=== PATIENT | female | born 1970 | race Caucasian/White ===

== ENCOUNTER → 2019-06-16 | Outpatient (CLI) | payer BC ==
[~2019-06-16] MED LIST: ACEBUTCAFT PO; ANTIBIOTIC; AZIT250; AZIT250 PO; CITA20 PO; CYCL10 PO; HYDACE5 PO; IBUP800; IBUP800 PO; LITH300C; META800; META800 PO; METO10 PO; NAPR500 PO; ONDA4ODT MM; OXYACE5T PO; OXYC5 PO; PROCODE120 PO; PROM25 PO; QUET100 PO; RXHYDACE PO; SERT100; SYNTHROID; SYNTHROID PO
[2019-06-16 17:00] LABS: Source, Urine Voided
[2019-06-16 17:12] LABS: Bilirubin, Urine Neg (Neg); Blood, Urine 4+ (Neg); Glucose Qualitative, Urine Neg (Neg); Ketones, Urine Neg (Neg); Leukocyte Esterase, Urine 3+ (Neg); Nitrite, Urine Neg (Neg); Protein, Urine 2+ (Neg); Specific Gravity, Urine 1.015 (1.003-1.022); Urobilinogen, Urine NORM (Normal)
[2019-06-16 17:37] LABS: Appearance, Urine Cloudy (Clear); Color, Urine Yellow (P-Yellow)
[2019-06-16 17:38] LABS: Bacteria Mod /hpf; Squamous Epithelial Cells Few /hpf (Few); White Blood Cells, Urine TNTC /hpf (0-5)
== END ==
LOC: LAB 16:58 → LAB SHORT 16:58
PROVIDERS: Nurse Practitioner Family
DX: R30.0 Dysuria (principal)
CPT/HCPCS: 81001; 87077; 87086; 87186

== ENCOUNTER 2020-12-22 12:45 | Emergency (ER) | payer BC ==
[~2020-12-22] VITALS: Ht 162.6 cm; Wt 106.1 kg
[2020-12-22 13:48] LABS: BASOPHILS ABSOLUTE AUTO 0.09 K/mm3 (0.00-0.23); BASOPHILS PERCENT AUTO 1 % (0-2); EOSINOPHILS ABSOLUTE AUTO 0.13 K/mm3 (0.00-0.68); EOSINOPHILS PERCENT AUTO 2 % (0-6); Hematocrit 44.1 % (33.0-51.0); Hemoglobin 13.3 g/dL (11.5-16.0); IMMATURE GRAN ABSOLUTE AUTO 0.01 K/mm3 (0.00-0.10); IMMATURE GRAN PERCENT AUTO 0 % (0-1); LYMPHOCYTES ABSOLUTE AUTO 2.75 K/mm3 (0.84-5.20); LYMPHOCYTES PERCENT AUTO 34 % (21-46); MONOCYTES ABSOLUTE AUTO 0.44 K/mm3 (0.16-1.47); MONOCYTES PERCENT AUTO 6 % (4-13); Mean Corpuscular HGB 19.8 pg (26.0-34.0); Mean Corpuscular HGB Conc 30.2 g/dL (31.5-36.5); Mean Corpuscular Volume 66 fL (80-100); Mean Platelet Volume 10.3 fL (9.1-12.4); NEUTROPHILS ABSOLUTE AUTO 4.65 K/mm3 (1.96-9.15); NEUTROPHILS PERCENT AUTO 58 % (41-73); Platelet Count 277 K/mm3 (150-400); RDW Coefficient Variation 17.7 % (11.7-14.2); RDW Standard Deviation 36.4 fL (35.1-46.3); Red Blood Cell Count 6.71 M/mm3 (3.80-5.20); White Blood Cell Count 8.07 K/mm3 (4.00-11.30)
[2020-12-22 14:11] LABS: Alanine Aminotransfer (ALT/SGP 30 U/L (12-78); Albumin, Blood 3.6 g/dL (3.4-5.0); Albumin/Globulin Ratio 0.8 (0.8-1.8); Alk Phos 149 U/L (50-136); Anion Gap 7 mmol/L (6-16); Aspartate Aminotrans (AST/SGOT 16 U/L (12-37); Bilirubin, Total 0.7 mg/dL (0.1-1.0); Blood Urea Nitrogen 9 mg/dL (8-24); Bun/Creatinine Ratio 10.9 (12.0-20.0); CO2, Blood 25 mmol/L (21-32); Calcium, Blood 9.3 mg/dL (8.5-10.1); Chloride, Blood 106 mmol/L (98-108); Creatinine, Blood 0.83 mg/dL (0.40-1.00); Globulin, Blood 4.3 g/dL (2.2-4.0); Glomerular Filtration Rate >60 (60-); Glucose, Blood 103 mg/dL (70-99); Potassium, Blood 4.2 mmol/L (3.5-5.5); Sodium, Blood 138 mmol/L (136-145); Total Protein, Blood 7.9 g/dL (6.4-8.2); Troponin I <0.015 ng/mL (0.000-0.040)
[2021-05-04] MEDS ORDERED: Prednisone10 MG PO (12:11)
== END 2020-12-22 18:17 | disposition home or self-care (01) ==
LOC: ER 12:45
PROVIDERS: Emergency Medicine
DX: R16.1 Splenomegaly, not elsewhere classified (principal); R59.0 Localized enlarged lymph nodes; R06.00 Dyspnea, unspecified; F17.200 Nicotine dependence, unspecified, uncomplicated; Z88.8 Allergy status to other drugs, medicaments and biological substances; Z79.899 Other long term (current) drug therapy
CPT/HCPCS: 36415; 71046; 71260; 80053; 83735; 83880; 84484; 85025; 85379; 93005; 93010; 93971; 99285-25; Q9967

== ENCOUNTER 2021-05-01 07:37 | Day surgery (SDC) | payer BC ==
[~2021-05-01] VITALS: Ht 1661.1 cm; Wt 105.0 kg
[2021-05-01] MEDS ORDERED: ABILIFY MYCITE20 MG PO (08:26)
[2021-05-01] MEDS ORDERED: PROAIR DIGIHAL90 MCG INH (08:26)
[2021-05-01] MEDS ORDERED: LEVSOD100 PO (08:27)
[2021-05-01] MEDS ORDERED: LASIX40 MG PO (08:27)
[2021-05-01] MEDS ORDERED: POTCHL20ER PO (08:27)
--- NOTE | 2021-05-01 10:35 | NUR ---
DISCHARGE PT REMAINED A&OX3 AND DENIED ANY PAIN DURING RECOVERY. PT ABLE TO SWALLOW WATER WITH EASE. DR. CRISTOBAL HERE TO CONSENT PT FOR ANGIOGRAM. IV DC'S WITH MARYLU IN TACT. DISCHARGE PAPERWORK GONE OVER WITH PT. PT VERBALLY STATED THE UNDERSTANDING OF THE DISCHARGE EDUCATION AND DENIED ANY QUESTIONS AT THIS TIME. PT WHEELED OUT BY THIS NURSE.
[2021-05-04] MEDS ORDERED: Prednisone10 MG PO (12:11)
== END 2021-05-01 10:47 | disposition home or self-care (01) ==
LOC: MHTC 07:37
DX: I08.1 Rheumatic disorders of both mitral and tricuspid valves (principal); J45.909 Unspecified asthma, uncomplicated; E03.9 Hypothyroidism, unspecified; Z79.899 Other long term (current) drug therapy; Z88.8 Allergy status to other drugs, medicaments and biological substances
CPT/HCPCS: 93246; 93312; 93325; 99152; 99153; A9270; J2250; J2310; J3010; J7040

== ENCOUNTER 2021-05-07 08:40 | Day surgery (SDC) | payer BC ==
[~2021-05-07] VITALS: Ht 162.6 cm; Wt 110.7 kg
[~2021-05-07 08:40] MED LIST changes: +ABILIFY MYCITE20 MG PO; +LASIX40 MG PO; +LEVSOD100 PO; +POTCHL20ER PO; +PROAIR DIGIHAL90 MCG INH; +Prednisone10 MG PO
--- NOTE | 2021-05-07 11:41 | NUR ---
PT RETURNED BACK TO RECOVERY ROOM IN RECLINER. RIGHT RADIAL TR BAND SITE SOFT NON-TENDER WITH NO HEMATOMA, NO PULSATILE BLEEDING WITH WRIST BOARD IN PLACE. R AC VENOUS SITE SOFT NON-TENDER WITH NO HEMATOMA, SLIGHT TRACK OOZING NOTED WITH INTACT MYRON AND DRESSING. SP02 PROBE ON RIGHT INDEX FINGER WITH 98% SAT. CALL LIGHT IN REACH; PT DRINKING WATER.
--- NOTE | 2021-05-07 13:28 | NUR ---
12 CC OF AIR REMOVED OUT OF NOW DEFLATED RIGHT TR BAND OVER 10 MIN. RIGHT RADIAL SITE SOFT NON-TENDER WITH NO HEMATOMA, NO PULSATILE BLEEDING. RIGHT AC SITE NO CHANGES. DISCHARGE INSTRUCTIONS REVIEWED ALL QUESTIONS ANSWERED.
--- NOTE | 2021-05-07 13:57 | NUR ---
NO CHANGES TO EITHER RIGHT RADIAL DEFLATED TR BAND SITE OR RIGHT AC SITE.
--- NOTE | 2021-05-07 14:19 | NUR ---
NO CHANGES TO EITHER RIGHT RADIAL SITE OR RIGHT AC SITE. DEFLATED RIGHT TR BAND REMOVED AND POLYMEM PLACED OVER RIGHT RADIAL SITE WITH WRIST BOARD IN PLACE. 22 G IV DISCONTINUED FROM LEFT UPPER ARM WITH INTACT CANNULA. PT ESCORTED OUT VIA WHEELCHAIR ESCORT.
== END 2021-05-07 14:20 | disposition home or self-care (01) ==
LOC: MHTC 08:40
DX: I27.20 Pulmonary hypertension, unspecified (principal); I34.0 Nonrheumatic mitral (valve) insufficiency; I50.30 Unspecified diastolic (congestive) heart failure; I51.7 Cardiomegaly; R00.0 Tachycardia, unspecified; F17.290 Nicotine dependence, other tobacco product, uncomplicated; J45.909 Unspecified asthma, uncomplicated; E03.9 Hypothyroidism, unspecified; E66.9 Obesity, unspecified; Z68.41 Body mass index [BMI] 40.0-44.9, adult
CPT/HCPCS: 76937; 93460; 99152; 99153; C1769; C1894; J1644; J2250; J3010; J7030; J7050; Q9967

== ENCOUNTER 2021-09-24 15:16 | Emergency (ER) | payer BC ==
[~2021-09-24] VITALS: Ht 162.6 cm; Wt 102.1 kg
[~2021-09-24 15:16] MED LIST changes: -LEVSOD100 PO; +LEVSOD150 PO
[2021-09-24 16:07] LABS: BASOPHILS ABSOLUTE AUTO 0.04 K/mm3 (0.00-0.23); BASOPHILS PERCENT AUTO 1 % (0-2); EOSINOPHILS ABSOLUTE AUTO 0.17 K/mm3 (0.00-0.68); EOSINOPHILS PERCENT AUTO 2 % (0-6); Hematocrit 39.4 % (33.0-51.0); Hemoglobin 11.3 g/dL (11.5-16.0); IMMATURE GRAN ABSOLUTE AUTO 0.03 K/mm3 (0.00-0.10); IMMATURE GRAN PERCENT AUTO 0 % (0-1); LYMPHOCYTES ABSOLUTE AUTO 1.93 K/mm3 (0.84-5.20); LYMPHOCYTES PERCENT AUTO 22 % (21-46); MONOCYTES ABSOLUTE AUTO 0.57 K/mm3 (0.16-1.47); MONOCYTES PERCENT AUTO 7 % (4-13); Mean Corpuscular HGB 20.9 pg (26.0-34.0); Mean Corpuscular HGB Conc 28.7 g/dL (31.5-36.5); Mean Corpuscular Volume 73 fL (80-100); NEUTROPHILS PERCENT AUTO 69 % (41-73); Platelet Count 198 K/mm3 (150-400); RDW Coefficient Variation 18.8 % (11.7-14.2); RDW Standard Deviation 47.3 fL (35.1-46.3); White Blood Cell Count 8.74 K/mm3 (4.00-11.30)
[2021-09-24 16:19] LABS: Alanine Aminotransfer (ALT/SGP 28 U/L (12-78); Albumin, Blood 2.7 g/dL (3.4-5.0); Albumin/Globulin Ratio 0.7 (0.8-1.8); Alk Phos 147 U/L (50-136); Anion Gap 1 mmol/L (6-16); Aspartate Aminotrans (AST/SGOT 23 U/L (12-37); Bilirubin, Total 0.5 mg/dL (0.1-1.0); Blood Urea Nitrogen 6 mg/dL (8-24); Bun/Creatinine Ratio 10.2 (12.0-20.0); CO2, Blood 35 mmol/L (21-32); Calcium, Blood 9.5 mg/dL (8.5-10.1); Chloride, Blood 104 mmol/L (98-108); Creatinine, Blood 0.59 mg/dL (0.40-1.00); Globulin, Blood 4.1 g/dL (2.2-4.0); Glomerular Filtration Rate >60 (60-); Glucose, Blood 170 mg/dL (70-99); Potassium, Blood 4.1 mmol/L (3.5-5.5); Sodium, Blood 140 mmol/L (136-145); Total Protein, Blood 6.8 g/dL (6.4-8.2); Troponin I <0.015 ng/mL (0.000-0.040)
[2021-09-24] MEDS ORDERED: Coumadin2 MG PO (16:25)
[2021-09-24] MEDS ORDERED: METO25 PO (16:26)
[2021-09-24 16:36] LABS: Prothrombin Time Results 42.1 Sec (9.7-11.5)
[2021-09-24 17:03] LABS: International Normalized Ratio 4.42
[2021-09-24] MEDS ORDERED: HUMULIN R100 UNIT/2 SC (17:25)
[2021-09-24] MEDS ORDERED: LOW DOSE ASPIRI81 M1 PO (17:26)
== END 2021-09-24 20:18 | disposition home or self-care (01) ==
LOC: ER 15:16
PROVIDERS: Physician Assistant
DX: R09.02 Hypoxemia (principal); I95.9 Hypotension, unspecified; F31.9 Bipolar disorder, unspecified; F17.200 Nicotine dependence, unspecified, uncomplicated; Z88.8 Allergy status to other drugs, medicaments and biological substances; Z79.899 Other long term (current) drug therapy
CPT/HCPCS: 36415; 71046; 80053; 83690; 83880; 84145; 84484; 85025; 85610; 86850; 86900; 86901; 93005; 93010; 99285-25; J7030

== ENCOUNTER 2021-10-02 10:06 | Inpatient (IN) | payer BC ==
[~2021-10-02] VITALS: Ht 162.6 cm; Wt 102.1 kg
[~2021-10-02 10:06] MED LIST changes: +Coumadin2 MG PO; +HUMULIN R100 UNIT/2 SC; +LOW DOSE ASPIRI81 M1 PO; +METO25 PO
[2021-10-02 11:10] LABS: BASOPHILS ABSOLUTE AUTO 0.06 K/mm3 (0.00-0.23); BASOPHILS PERCENT AUTO 1 % (0-2); EOSINOPHILS ABSOLUTE AUTO 0.08 K/mm3 (0.00-0.68); EOSINOPHILS PERCENT AUTO 1 % (0-6); Hematocrit 38.7 % (33.0-51.0); Hemoglobin 10.4 g/dL (11.5-16.0); IMMATURE GRAN PERCENT AUTO 1 % (0-1); LYMPHOCYTES PERCENT AUTO 18 % (21-46); MONOCYTES ABSOLUTE AUTO 0.64 K/mm3 (0.16-1.47); MONOCYTES PERCENT AUTO 8 % (4-13); Mean Corpuscular HGB 20.6 pg (26.0-34.0); Mean Corpuscular HGB Conc 26.9 g/dL (31.5-36.5); Mean Corpuscular Volume 77 fL (80-100); NEUTROPHILS ABSOLUTE AUTO 6.05 K/mm3 (1.96-9.15); NEUTROPHILS PERCENT AUTO 72 % (41-73); Platelet Count 165 K/mm3 (150-400); RDW Coefficient Variation 17.7 % (11.7-14.2); RDW Standard Deviation 47.8 fL (35.1-46.3); Red Blood Cell Count 5.05 M/mm3 (3.80-5.20); White Blood Cell Count 8.43 K/mm3 (4.00-11.30)
[2021-10-02 11:11] LABS: Mean Platelet Volume 11.3 fL (9.1-12.4)
[2021-10-02 11:26] LABS: International Normalized Ratio 1.74; Prothrombin Time Results 17.6 Sec (9.7-11.5)
[2021-10-02 11:40] LABS: Source, Urine Clean Catch
[2021-10-02 11:45] LABS: Appearance, Urine Clear (Clear); Bilirubin, Urine Neg (Neg); Blood, Urine 2+ (Neg); Color, Urine Yellow (P-Yellow); Glucose Qualitative, Urine Neg (Neg); Ketones, Urine Neg (Neg); Leukocyte Esterase, Urine Neg (Neg); Nitrite, Urine Neg (Neg); Protein, Urine Neg (Neg); Urobilinogen, Urine NORM (Normal); pH, Urine 6.5 (5.0-8.0)
[2021-10-02 12:10] LABS: Alanine Aminotransfer (ALT/SGP 31 U/L (12-78); Albumin/Globulin Ratio 0.7 (0.8-1.8); Alk Phos 125 U/L (50-136); Aspartate Aminotrans (AST/SGOT 16 U/L (12-37); Bilirubin, Total 0.5 mg/dL (0.1-1.0); Blood Urea Nitrogen 9 mg/dL (8-24); Bun/Creatinine Ratio 16.7 (12.0-20.0); Calcium, Blood 9.6 mg/dL (8.5-10.1); Chloride, Blood 93 mmol/L (98-108); Creatinine, Blood 0.54 mg/dL (0.40-1.00); Globulin, Blood 4.2 g/dL (2.2-4.0); Glomerular Filtration Rate >60 (60-); Glucose, Blood 103 mg/dL (70-99); Potassium, Blood 4.6 mmol/L (3.5-5.5); Sodium, Blood 138 mmol/L (136-145); Total Protein, Blood 7.2 g/dL (6.4-8.2)
[2021-10-02 12:14] LABS: Anion Gap Unable to Calculate mmol/L (6-16); CO2, Blood >45 mmol/L (21-32)
[2021-10-02 12:33] LABS: Squamous Epithelial Cells Few /hpf (Few)
[2021-10-02 12:36] LABS: Bacteria Not Seen /hpf; White Blood Cells, Urine 0-2 /hpf (0-5)
[2021-10-02 12:38] LABS: Hyaline Casts 0-2 /lpf (0-2); Mucus Light (0-Heavy)
[2021-10-02 12:42] LABS: PO2 Arterial 157 mmHg (80-100)
[2021-10-02 12:44] LABS: PCO2 Arterial > 105 mmHg (35-45); pH Blood Arterial 7.24 (7.35-7.45)
[2021-10-02] MEDS ORDERED: Hydroxyzine HCl25 MG PO (15:37)
[2021-10-02] MEDS ORDERED: JANTOVEN3 M2 (15:37)
--- NOTE | 2021-10-02 17:54 | NUR ---
Telephone report received from ED RN at this time. Anticipate pt arrival to PCU 5 shortly.
--- NOTE | 2021-10-02 18:36 | NUR ---
Pt arrived from ED on stretcher, wearing bipap. Settings 18/08, Fio2 35 % on arrival. Pt was slid from stretcher to the bed. She was able to sit up with assistance to auscultate lungs, and able to roll back and forth for assessment. She is alert, oriented to person, place, and following directions. Does not know the year/month/last holiday. Occasionally giving contradictory information, or simply states that she doesn't know. Calm, cooperative, and appears non-anxious. Fio2 decreased gradually to 25% as the pt's spo2 was 100%. Now on Fio2 25% her spo2 is 94-96%. RR is 38/minute. She states that it is uncomfortable to breathe with the bipap on. She is however, apparently tolerating it well. Lung sounds clear but diminished, respirations are shallow. Sinus tachycardia by telemetry monitoring.
[2021-10-02 22:38] LABS: Source, Urine Clean Catch
[2021-10-02 22:42] LABS: Appearance, Urine Clear (Clear); Bilirubin, Urine Neg (Neg); Blood, Urine Neg (Neg); Color, Urine Yellow (P-Yellow); Glucose Qualitative, Urine Neg (Neg); Ketones, Urine 2+ (Neg); Leukocyte Esterase, Urine Neg (Neg); Nitrite, Urine Neg (Neg); Protein, Urine Neg (Neg); Specific Gravity, Urine 1.015 (1.003-1.022); Urobilinogen, Urine NORM (Normal)
[2021-10-03 00:57] LABS: pH Blood Arterial 7.44 (7.35-7.45)
[2021-10-03 00:58] LABS: PCO2 Arterial 76.5 mmHg (35-45)
[2021-10-03 04:12] LABS: BASOPHILS ABSOLUTE AUTO 0.05 K/mm3 (0.00-0.23); BASOPHILS PERCENT AUTO 1 % (0-2); EOSINOPHILS ABSOLUTE AUTO 0.11 K/mm3 (0.00-0.68); EOSINOPHILS PERCENT AUTO 1 % (0-6); Hematocrit 36.8 % (33.0-51.0); Hemoglobin 10.2 g/dL (11.5-16.0); IMMATURE GRAN ABSOLUTE AUTO 0.05 K/mm3 (0.00-0.10); IMMATURE GRAN PERCENT AUTO 1 % (0-1); LYMPHOCYTES ABSOLUTE AUTO 1.85 K/mm3 (0.84-5.20); LYMPHOCYTES PERCENT AUTO 18 % (21-46); MONOCYTES ABSOLUTE AUTO 0.81 K/mm3 (0.16-1.47); MONOCYTES PERCENT AUTO 8 % (4-13); Mean Corpuscular HGB 20.4 pg (26.0-34.0); Mean Corpuscular HGB Conc 27.7 g/dL (31.5-36.5); Mean Corpuscular Volume 74 fL (80-100); NEUTROPHILS ABSOLUTE AUTO 7.42 K/mm3 (1.96-9.15); NEUTROPHILS PERCENT AUTO 72 % (41-73); Platelet Count 176 K/mm3 (150-400); RDW Coefficient Variation 18.1 % (11.7-14.2); RDW Standard Deviation 47.2 fL (35.1-46.3); Red Blood Cell Count 4.99 M/mm3 (3.80-5.20); White Blood Cell Count 10.29 K/mm3 (4.00-11.30)
[2021-10-03 04:22] LABS: International Normalized Ratio 2.21
[2021-10-03 04:28] LABS: Blood Urea Nitrogen 10 mg/dL (8-24); Bun/Creatinine Ratio 21.3 (12.0-20.0); Calcium, Blood 9.7 mg/dL (8.5-10.1); Chloride, Blood 93 mmol/L (98-108); Creatinine, Blood 0.47 mg/dL (0.40-1.00); Glomerular Filtration Rate >60 (60-); Glucose, Blood 82 mg/dL (70-99); Magnesium, Blood 1.8 mg/dL (1.6-2.4); Sodium, Blood 139 mmol/L (136-145)
[2021-10-03 04:35] LABS: Anion Gap Unable to Calculate mmol/L (6-16); CO2, Blood >45 mmol/L (21-32)
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
--- NOTE | 2021-10-03 16:15 | NUR ---
Spiritual care visit conducted. Patient is lying in bed and resting. Her spouse, Orlin is bedside. We talk about the many stressors they are facing and he shares his personal struggles and what he is concerned about with the patient. He tells me about her hallucinations, emotional challenges and confusion. I provide therapeutic listening, gentle certified substance abuse counselor and prayer. Both patient and Orlin benefit from the prayer and voice their appreciation for the visit. I will continue to remain available.
--- NOTE | 2021-10-03 17:14 | NUR ---
SHIFT SUMMARY PATIENT ALERT AND ORIENTED TO SELF, PLACE AND FAMILY. WHEN ASKED WHAT [place] PATIENT IS IN SHE STATES "[place]", BUT UNDERSTANDS SHE IS IN THE HOSPITAL. VSS ALL SHIFT. PATIENT HAS BEEN USING BIPAP FOR THE MAJORITY OF SHIFT WITH SMALL BREAKS FOR MEALS AND MEDICATIONS. SETTINGS ARE 18/8/30% FIO2 WITH OXYGEN SATURATION ABOVE 90%. 4L NC DURING BREAKS. DENIES CHEST PAIN OR PRESSURE. DENIES SHORTNESS OF BREATH. PATIENT ABLE TO MOVE SELF IN BED AND ABLE TO STAND-PIVOT TO BEDSIDE COMMODE. WITH PATIENT'S PERMISSION, UPDATE GIVEN TO PATIENT'S MOTHER STARR AND AN ATTEMPT TO GIVE UPDATE TO DAUGHTER JESSE. FREQUENT REMINDERS T/O DAY GIVEN TO PATIENT ABOUT USING CALL LIGHT IN ORDER TO PREVENT FALLS DUE TO LINES/CORDS. NO OTHER SIGNIFICANT CHANGES THIS SHIFT. WILL REPORT TO TRAINING LEAD RN.
--- NOTE | 2021-10-03 17:29 | NUR ---
SHIFT SUMMARY PATIENT ALERT AND ORIENTED X4. PATIENT ARRIVED FROM [facility] AROUNED 1300. VSS. TR BAND BEGAN DEFLATED AROUND 1600 WITH AN ATTEMPT TO DEFLATE 2MLS EVERY 15-20 MINUTES. RIGHT RADIAL SITE BEGAN TO BLEED AFTER 10 MLS DEFLATED. TR BAND CURRENTY HAS 5MLS INFLATED. NO SIGNS OR SYMPTOMS OF BLEEDING AT THIS TIME. ARM BOARD IN PLACE. RIGHT GROIN SIDE IS OOZING A MODERATE AMOUNT WITH A CLOT AT THE SITE. PATIENT ABLE TO SIT UP TO SIDE OF BED. DAUGHTER AT BEDSIDE. WILL REPORT TO EDITOR & CO FOUNDER RN.
[2021-10-04 06:54] LABS: Albumin, Blood 2.6 g/dL (3.4-5.0); Anion Gap 1 mmol/L (6-16); Blood Urea Nitrogen 8 mg/dL (8-24); Bun/Creatinine Ratio 15.5 (12.0-20.0); CO2, Blood 41 mmol/L (21-32); Calcium, Blood 9.3 mg/dL (8.5-10.1); Chloride, Blood 98 mmol/L (98-108); Creatinine, Blood 0.52 mg/dL (0.40-1.00); Glomerular Filtration Rate >60 (60-); Glucose, Blood 84 mg/dL (70-99); Phosphorus, Blood 2.7 mg/dL (2.5-4.9); Potassium, Blood 3.3 mmol/L (3.5-5.5); Sodium, Blood 140 mmol/L (136-145)
[2021-10-04 07:02] LABS: International Normalized Ratio 3.8; Prothrombin Time Results 36.6 Sec (9.7-11.5)
--- NOTE | 2021-10-04 10:05 | NUR ---
POTASSIUM PATIENT HAD 20 MEQ ORDERED FOR 0900. ORDER PLACED FOR 30 MEQ AT 1000. CALL PLACED TO DR. HURST ABOUT DUPLICATE ORDER. ORDERS RECIEVED TO DC 30 MEQ DOSE AND TO CONTINUE 0900 20 MEQ.
[2021-10-04 11:36] LABS: PCO2 Arterial 64.5 mmHg (35-45); PO2 Arterial 91.7 mmHg (80-100); pH Blood Arterial 7.46 (7.35-7.45)
--- NOTE | 2021-10-04 13:18 | NUR ---
UPDATE REPEAT ANG DRAWN WHILE PATIENT ON NC. DR. HURST CALLED WITH RESULTS. PLAN IS TO KEEP PATIENT ON CURRENT O2 NC SETTINGS OVER NIGHT UNLESS PATIENT DECOMPINSATES AND BIPAP CAN BE APPLIED. WILL REEVALUATE IN THE MORNING.
--- NOTE | 2021-10-04 15:24 | NUR ---
spiritual care visit conducted. Patient is sitting on a chair and alert. Patient immediately tells me she wants to go home. We talk about her journey and the medical issues she has had. She talks about some personal and spiritual issues. I provide therapeutic listening, pastoral family life counselor and prayer. Patient responds well and shows signs of catharsis and greater peace. I will continue to remain avialbe to patient and family.
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
[2021-10-05 06:06] LABS: International Normalized Ratio 3.45; Prothrombin Time Results 33.4 Sec (9.7-11.5)
--- NOTE | 2021-10-05 06:20 | NUR ---
SHIFT SUMMARY PT ALERT AND ORIENTED X4. MENTATION IMPROVED THIS SHIFT FROM PREVIOUS EVENING. VSS. ASLEEP MOST OF NIGHT DOING SLEEP STUDY- UNABLE TO OBTAIN MIDNIGHT VITALS. COOPERATIVE TO CARE. PT IN BED SLEEPING ON SIDE WITH CALL ALARM IN REACH.
[2021-10-05 06:26] LABS: Albumin, Blood 2.5 g/dL (3.4-5.0); Anion Gap 2 mmol/L (6-16); Blood Urea Nitrogen 4 mg/dL (8-24); Bun/Creatinine Ratio 8.5 (12.0-20.0); CO2, Blood 39 mmol/L (21-32); Calcium, Blood 8.9 mg/dL (8.5-10.1); Chloride, Blood 102 mmol/L (98-108); Creatinine, Blood 0.47 mg/dL (0.40-1.00); Glomerular Filtration Rate >60 (60-); Glucose, Blood 92 mg/dL (70-99); Potassium, Blood 3.7 mmol/L (3.5-5.5); Sodium, Blood 143 mmol/L (136-145)
== END 2021-10-05 12:00 | disposition home or self-care (01) | DRG 189 ==
LOC: ER 10:06 → ERHOLD 15:29 → PCU 17:56
PROVIDERS: Emergency Medicine; Internal Medicine; Physician Assistant; ADMIT Internal Medicine
PROC: 5A09357 Assistance with Respiratory Ventilation, Less than 24 Consecutive Hours, Continuous Positive Airway Pressure (ICD-10-PCS; principal; 2021-10-02)
DX: J96.02 Acute respiratory failure with hypercapnia (principal); G92.9 Unspecified toxic encephalopathy; E87.2 Acidosis; F31.9 Bipolar disorder, unspecified; E66.9 Obesity, unspecified; E03.9 Hypothyroidism, unspecified; Z68.38 Body mass index [BMI] 38.0-38.9, adult; Z28.89 Immunization not carried out for other reason; I10 Essential (primary) hypertension; E11.9 Type 2 diabetes mellitus without complications; Z95.2 Presence of prosthetic heart valve; Z90.49 Acquired absence of other specified parts of digestive tract; Z98.890 Other specified postprocedural states; Z90.710 Acquired absence of both cervix and uterus; Z87.891 Personal history of nicotine dependence; Z88.8 Allergy status to other drugs, medicaments and biological substances; Z79.82 Long term (current) use of aspirin; Z79.01 Long term (current) use of anticoagulants; Z79.899 Other long term (current) drug therapy
CPT/HCPCS: 36415; 36600; 70450; 71045; 80048; 80053; 80069; 81001; 81003; 82140; 82803; 82947; 83735; 84145; 84443; 85025; 85610; 93005; 93010; 94640; 94660; 94762; 96374; 97110; 97162; 97530; 99285-25; A9270; J2060; J7040; P9612

== ENCOUNTER 2021-10-16 14:53 | Inpatient (IN) | payer BC ==
[~2021-10-16] VITALS: Ht 162.6 cm; Wt 103.8 kg
[~2021-10-16 14:53] MED LIST changes: -ABILIFY MYCITE20 MG PO; -Coumadin2 MG PO; -HUMULIN R100 UNIT/2 SC; +JANTOVEN3 M2; -LEVSOD150 PO; -LOW DOSE ASPIRI81 M1 PO; -METO25 PO; -POTCHL20ER PO
[2021-10-16 15:57] LABS: BASOPHILS ABSOLUTE AUTO 0.02 K/mm3 (0.00-0.23); BASOPHILS PERCENT AUTO 0 % (0-2); EOSINOPHILS ABSOLUTE AUTO 0.07 K/mm3 (0.00-0.68); EOSINOPHILS PERCENT AUTO 1 % (0-6); Hematocrit 38.7 % (33.0-51.0); Hemoglobin 10.5 g/dL (11.5-16.0); IMMATURE GRAN ABSOLUTE AUTO 0.04 K/mm3 (0.00-0.10); IMMATURE GRAN PERCENT AUTO 1 % (0-1); LYMPHOCYTES ABSOLUTE AUTO 1.26 K/mm3 (0.84-5.20); LYMPHOCYTES PERCENT AUTO 18 % (21-46); MONOCYTES ABSOLUTE AUTO 0.57 K/mm3 (0.16-1.47); MONOCYTES PERCENT AUTO 8 % (4-13); Mean Corpuscular HGB 20.1 pg (26.0-34.0); Mean Corpuscular HGB Conc 27.1 g/dL (31.5-36.5); Mean Corpuscular Volume 74 fL (80-100); NEUTROPHILS ABSOLUTE AUTO 5.17 K/mm3 (1.96-9.15); NEUTROPHILS PERCENT AUTO 72 % (41-73); Platelet Count 176 K/mm3 (150-400); RDW Coefficient Variation 17.3 % (11.7-14.2); RDW Standard Deviation 45.7 fL (35.1-46.3); Red Blood Cell Count 5.23 M/mm3 (3.80-5.20); White Blood Cell Count 7.13 K/mm3 (4.00-11.30)
[2021-10-16 16:03] LABS: Troponin I <0.015 ng/mL (0.000-0.040)
[2021-10-16 16:05] LABS: Alanine Aminotransfer (ALT/SGP 33 U/L (12-78); Albumin, Blood 2.8 g/dL (3.4-5.0); Albumin/Globulin Ratio 0.7 (0.8-1.8); Alk Phos 132 U/L (50-136); Anion Gap Unable to Calculate mmol/L (6-16); Aspartate Aminotrans (AST/SGOT 23 U/L (12-37); Bilirubin, Total 0.3 mg/dL (0.1-1.0); Blood Urea Nitrogen 12 mg/dL (8-24); Bun/Creatinine Ratio 24.4 (12.0-20.0); Calcium, Blood 9.5 mg/dL (8.5-10.1); Chloride, Blood 93 mmol/L (98-108); Creatinine, Blood 0.49 mg/dL (0.40-1.00); Globulin, Blood 4.3 g/dL (2.2-4.0); Glomerular Filtration Rate >60 (60-); Glucose, Blood 175 mg/dL (70-99); Potassium, Blood 3.9 mmol/L (3.5-5.5); Sodium, Blood 143 mmol/L (136-145); Total Protein, Blood 7.1 g/dL (6.4-8.2)
[2021-10-16 16:07] LABS: CO2, Blood >45 mmol/L (21-32)
[2021-10-16 18:25] LABS: Base Excess Venous 27.3 mmol/L; Bicarbonate Venous 47.7 mmol/L (24.0-30.0); PCO2 Venous 101 mmHg (38-42); PO2 Venous 77.5 mmHg (38-42); pH Blood Venous 7.33 (7.34-7.37)
[2021-10-16] MEDS ORDERED: ENOX100I SC (19:53)
[2021-10-16] MEDS ORDERED: WARF2 PO (19:54)
[2021-10-16] MEDS ORDERED: Hydroxyzine HCl25 MG PO (19:55)
[2021-10-16] MEDS ORDERED: ABILIFY MYCITE20 MG PO (19:56)
[2021-10-16] MEDS ORDERED: HUMULIN R100 UNIT/2 SC (19:58)
[2021-10-16] MEDS ORDERED: LOW DOSE ASPIRI81 M1 PO (19:58)
[2021-10-16] MEDS ORDERED: LEVSOD150 PO (19:58)
[2021-10-16] MEDS ORDERED: POTCHL20ER PO (19:59)
[2021-10-16] MEDS ORDERED: METO25 PO (19:59)
[2021-10-16 21:02] LABS: Influenza A, PCR NEGATIVE (NEGATIVE); Influenza B, PCR NEGATIVE (NEGATIVE); Resp Syncytial Virus, PCR NEGATIVE (NEGATIVE); SARS-Cov-2 (COVID-19) PCR, MMC NEGATIVE (NEGATIVE)
[2021-10-16 22:09] LABS: International Normalized Ratio 2.34; Prothrombin Time Results 23.2 Sec (9.7-11.5)
[2021-10-17 03:42] LABS: Base Excess Venous 28.8 mmol/L; Bicarbonate Venous 50.8 mmol/L (24.0-30.0); PCO2 Venous 57.7 mmHg (38-42); PO2 Venous 56.5 mmHg (38-42)
[2021-10-17 03:43] LABS: pH Blood Venous 7.56 (7.34-7.37)
[2021-10-17 03:57] LABS: BASOPHILS ABSOLUTE AUTO 0.05 K/mm3 (0.00-0.23); BASOPHILS PERCENT AUTO 1 % (0-2); EOSINOPHILS PERCENT AUTO 1 % (0-6); Hematocrit 34.3 % (33.0-51.0); Hemoglobin 9.4 g/dL (11.5-16.0); IMMATURE GRAN ABSOLUTE AUTO 0.04 K/mm3 (0.00-0.10); IMMATURE GRAN PERCENT AUTO 1 % (0-1); LYMPHOCYTES PERCENT AUTO 20 % (21-46); MONOCYTES ABSOLUTE AUTO 0.72 K/mm3 (0.16-1.47); MONOCYTES PERCENT AUTO 9 % (4-13); Mean Corpuscular HGB 19.9 pg (26.0-34.0); Mean Corpuscular HGB Conc 27.4 g/dL (31.5-36.5); Mean Corpuscular Volume 73 fL (80-100); NEUTROPHILS ABSOLUTE AUTO 5.84 K/mm3 (1.96-9.15); NEUTROPHILS PERCENT AUTO 69 % (41-73); Platelet Count 171 K/mm3 (150-400); RDW Coefficient Variation 17.2 % (11.7-14.2); RDW Standard Deviation 44.7 fL (35.1-46.3); Red Blood Cell Count 4.73 M/mm3 (3.80-5.20); White Blood Cell Count 8.45 K/mm3 (4.00-11.30)
[2021-10-17 04:10] LABS: International Normalized Ratio 2.28; Prothrombin Time Results 22.7 Sec (9.7-11.5)
[2021-10-17 04:25] LABS: Albumin, Blood 2.6 g/dL (3.4-5.0); Blood Urea Nitrogen 9 mg/dL (8-24); Calcium, Blood 9.7 mg/dL (8.5-10.1); Chloride, Blood 94 mmol/L (98-108); Creatinine, Blood 0.43 mg/dL (0.40-1.00); Glomerular Filtration Rate >60 (60-); Glucose, Blood 97 mg/dL (70-99); Phosphorus, Blood 2.1 mg/dL (2.5-4.9); Sodium, Blood 140 mmol/L (136-145)
[2021-10-17 04:29] LABS: Anion Gap Unable to Calculate mmol/L (6-16); CO2, Blood >45 mmol/L (21-32)
--- NOTE | 2021-10-17 05:12 | NUR ---
UPDATE DR HURD NOTIFIED OF VBG RESULTS AND CO2 >45. NOTIFIED THAT PT WAS REMOVED FROM BIPAP PRIOR TO CALLING WITH RESULTS. PER MD WILL REMAIN OFF BIPAP AND WILL REASSESS AT LATER TIME.
--- NOTE | 2021-10-17 05:39 | NUR ---
SHIFT SUMMARY PT ADMITTED TO PCU 1 FROM ED. PT ALERT AND ORIENTED, FOLLOWS COMMANDS, ABLE TO MOVE ALL EXTREMITIES WITH WEAKNESS T/O. PT UP TO BSC X2 THIS SHIFT, STANDBY ASSIST. BIPAP PLACED ON PT SHORTLY AFTER ARRIVING TO UNIT, WAS REMOVED AFTER VBG RESULTED. PT CURRENTLY ON 2L NC SPO2 >90%. PT CONTINUES TO BE ALERT AND ORIENTED. LUNGS CLEAR WITH DIM BASES. DENIES PAIN AND SOB AT THIS TIME. PIV SALINE LOCKED.
--- NOTE | 2021-10-17 09:48 | NUR ---
[facility] FROM [facility]
--- NOTE | 2021-10-17 11:40 | NUR ---
Brief visit this AM. Pt resting in bed with her eyes closed. Pt awakes to gentle verbal stimuli. Pt denies pain, dyspnea, and anxiety at this time. Attempted therapeutic conversation with Pt appearing to be withdrawn from conversation. Pt answers in brief yes or no questions. Pt reports living at home with her husban. Pt reports being tired. Ended visit to allow Pt to rest. Spoke with Primary RN Sana and discussed case. Pt appears to lack motivation. Palliative Care will F/U at a later time for advanced care planning.
--- NOTE | 2021-10-17 17:15 | NUR ---
PT MINIMALLY CONVERSIVE T/O THE SHIFT. PT A/O X3, INTERACTS WELL WITH FAMILY. DAUGHTER CALLED TODAY EXPRESSED CONCERN THAT PT SHOULD BE ON HOME BIPAP. PT MINIMALLY PARTICIPATED IN PHYSICAL AND OCCUPATIONAL THERAPY ASSESSMENT THIS MONRING. VSS. DENIES CP OR SOB. ANSWERS MOST QUESTIONS IN SHORT OR 1 WORD SENTENCES. PT HAS SLEPT T/O MOST OF THE DAY.
[2021-10-18 03:56] LABS: Base Excess Venous 25.1 mmol/L; Bicarbonate Venous 46.7 mmol/L (24.0-30.0); PCO2 Venous 61.8 mmHg (38-42); PO2 Venous 63.6 mmHg (38-42)
[2021-10-18 04:11] LABS: BASOPHILS ABSOLUTE AUTO 0.03 K/mm3 (0.00-0.23); BASOPHILS PERCENT AUTO 0 % (0-2); EOSINOPHILS PERCENT AUTO 3 % (0-6); Hematocrit 34.9 % (33.0-51.0); Hemoglobin 9.9 g/dL (11.5-16.0); IMMATURE GRAN ABSOLUTE AUTO 0.02 K/mm3 (0.00-0.10); IMMATURE GRAN PERCENT AUTO 0 % (0-1); LYMPHOCYTES ABSOLUTE AUTO 1.77 K/mm3 (0.84-5.20); LYMPHOCYTES PERCENT AUTO 23 % (21-46); MONOCYTES ABSOLUTE AUTO 0.76 K/mm3 (0.16-1.47); MONOCYTES PERCENT AUTO 10 % (4-13); Mean Corpuscular HGB 19.9 pg (26.0-34.0); Mean Corpuscular HGB Conc 28.4 g/dL (31.5-36.5); Mean Corpuscular Volume 70 fL (80-100); NEUTROPHILS ABSOLUTE AUTO 5.06 K/mm3 (1.96-9.15); NEUTROPHILS PERCENT AUTO 64 % (41-73); Platelet Count 183 K/mm3 (150-400); RDW Coefficient Variation 17.5 % (11.7-14.2); Red Blood Cell Count 4.98 M/mm3 (3.80-5.20); White Blood Cell Count 7.84 K/mm3 (4.00-11.30)
[2021-10-18 04:47] LABS: Albumin, Blood 2.6 g/dL (3.4-5.0); Anion Gap 1 mmol/L (6-16); Blood Urea Nitrogen 6 mg/dL (8-24); Bun/Creatinine Ratio 14.3 (12.0-20.0); CO2, Blood 44 mmol/L (21-32); Calcium, Blood 9.6 mg/dL (8.5-10.1); Chloride, Blood 98 mmol/L (98-108); Creatinine, Blood 0.42 mg/dL (0.40-1.00); Glomerular Filtration Rate >60 (60-); Glucose, Blood 113 mg/dL (70-99); Potassium, Blood 3.7 mmol/L (3.5-5.5); Sodium, Blood 143 mmol/L (136-145)
[2021-10-18 04:49] LABS: International Normalized Ratio 2.97
--- NOTE | 2021-10-18 05:26 | NUR ---
SHIFT SUMMMARY PT ALERT AND ORIENTED X4. BP STABLE. HR 90'S-100'S SR/ST. ON 2L NC MAINTAINING SATS OVER 93%. DENIES PAIN. WANDERED OUT OF ROOM AROUND 0230, LOOKING FOR A BATHROOM. OTHERWISE, SLEEPING OR WATCHING TV THIS EVENING. IN BED RESTING WITH CALL ALARM AT SIDE. WILL CONTINUE TO MONITOR UNTIL REPORT GIVEN TO ONCOMING RN
[2021-10-18] MEDS ORDERED: ALBU90OI INH (12:59)
[2021-10-18] MEDS ORDERED: PROAIR DIGIHAL90 MCG INH (13:00)
[2021-10-18] MEDS ORDERED: FLUT1DIS5 INH (13:01)
--- NOTE | 2021-10-18 14:47 | NUR ---
PT AND FAMILY EDUCATED, THEY ARE MADE AWARE OF THE PULMONARY CONSULT SCHEDULED FOR OCTOBER. PT AND FAMILY EXPRESSED UNDERSTANDING THE D/C MEDCIATIONS THAT PT WILL STOP TAKING UPON RETURNING HOME
[2021-10-23] MEDS ORDERED: FLUT1DIS5 INH (13:34)
[2021-10-23] MEDS ORDERED: AMOCLA875 PO (13:34)
[2021-10-23] MEDS ORDERED: ALBU90OI INH (13:34)
== END 2021-10-18 14:51 | disposition home health service (06) | DRG 189 ==
LOC: ER 14:53 → ERHOLD 19:44 → PCU 21:11
PROVIDERS: Emergency Medicine; Family Medicine; Physician Assistant; ADMIT Internal Medicine
PROC: 5A09457 Assistance with Respiratory Ventilation, 24-96 Consecutive Hours, Continuous Positive Airway Pressure (ICD-10-PCS; principal; 2021-10-16)
DX: J96.21 Acute and chronic respiratory failure with hypoxia (principal); G92.8 Other toxic encephalopathy; E87.2 Acidosis; E87.3 Alkalosis; J96.22 Acute and chronic respiratory failure with hypercapnia; G35 Multiple sclerosis; F31.9 Bipolar disorder, unspecified; I10 Essential (primary) hypertension; E11.9 Type 2 diabetes mellitus without complications; E66.9 Obesity, unspecified; E03.9 Hypothyroidism, unspecified; E83.39 Other disorders of phosphorus metabolism; Z68.38 Body mass index [BMI] 38.0-38.9, adult; Z95.2 Presence of prosthetic heart valve; Z86.718 Personal history of other venous thrombosis and embolism; Z93.0 Tracheostomy status; Z98.890 Other specified postprocedural states; Z87.891 Personal history of nicotine dependence; Z88.8 Allergy status to other drugs, medicaments and biological substances; Z79.01 Long term (current) use of anticoagulants; Z79.82 Long term (current) use of aspirin; Z79.899 Other long term (current) drug therapy
CPT/HCPCS: 0241U; 36415; 71046; 80053; 80069; 82803; 82947; 83880; 84145; 84443; 84484; 85025; 85610; 93005; 93010; 94640; 94644; 94660; 94762; 97110; 97116; 97162; 97166; 97530; 99285-25; A9270